=== PATIENT | male | born 1985 | race Caucasian/White ===

== ENCOUNTER 2022-06-25 11:02 | Emergency (ER) | payer MEDICAID ==
[~2022-06-25] VITALS: Ht 175.3 cm; Wt 81.8 kg
[2022-06-25 11:12] VITALS: BP 156/97
--- NOTE | 2022-06-25 11:34 | NUR ---
Pt in ER1 Pt c/o painful urination, moderate amount of yellow discharge coming out of the tip of his penis. Pt is having difficulty walking. Pt c/o 11/02 pain w/urination, 3/ when AMB in the gland of the penise. Pt has been treated twice prior w/ ABX x1 and a shot twice aprox a few weeks prior to arrival of this visit. Pt think's he was treated around mid May.
[2022-06-25] MEDS ORDERED: CefTRIAXone 500MG IM Kit w/LIDOcaine IM STA (11:44)
[2022-06-25] MEDS ORDERED: azithromycin 250mg tablet PO ONE (11:45)
[2022-06-25] MEDS ORDERED: DOXY-1 PO (12:04)
== END 2022-06-25 12:19 | disposition home or self-care (01) ==
LOC: ER 11:02
DX: A64 Unspecified sexually transmitted disease (principal); Z56.0 Unemployment, unspecified
CPT/HCPCS: 36415; 87491; 87591; 96372; 99283; J0696